=== PATIENT | male | born 1985 | race Caucasian/White ===

== ENCOUNTER 2017-01-31 11:14 | Emergency (ER) | payer OTHER ==
[~2017-01-31] VITALS: Ht 180.3 cm; Wt 87.3 kg
[~2017-01-31 11:14] MED LIST: AMBIEN10 MG PO; ANAPROX DS550 M1 PO; ASPIR 8181 M1 PO; ATRIPLA TABLET; ATRIPLA TABLET1 EACH PO; ATRIPLA1 TAB PO; Atripla PO; BACTRIM,SEPT1 TABLET PO; Benadryl PO; CEPHALEXIN500 MG; CLEOCIN300 MG PO; CLONAZEPAM0.5 MG PO; CLONAZEPAM1 MG; Cleocin PO; FLEXERIL10 MG PO; HYCODAN SYRUP480 ML PO; Habitrol,Nicoderm CQ TD; IBUPROFEN800 MG PO; KEFLEX500 MG PO; KENALOG,ARISTOC15 G2 TP; KlonoPIN PO; MOTRIN800 MG PO; NAPROSYN500 MG PO; NICOTINE PATCH1 EAC2 TD; NORCO 5/3251 TABLET PO; Neurontin PO; OXYCODONE-APAP1 EACH PO; PERCOCET 10/1 TABLET PO; PERCOCET 5/31 TABLET PO; PREDNISONE50 MG PO; PROAIR HFA8.5 GM IH; Percocet 5/325,Endoc PO; SKELAXIN800 MG PO; TORADOL10 MG PO; TRAMADOL HCL50 MG PO; TYLENOL WITH C1 EACH PO; ULTRAM50 MG PO; VICODIN,LORT1 TABLET PO; ZITHROMAX Z-PA250 MG PO; predniSONE PO
[2017-01-31 11:32] VITALS: BP 128/82
== END 2017-01-31 14:05 | disposition left against medical advice (07) ==
LOC: EME 11:14
DX: Z53.21 Procedure and treatment not carried out due to patient leaving prior to being seen by health care provider (principal)
CPT/HCPCS: 93005